=== PATIENT | male | born 1965 | race Caucasian/White ===

== ENCOUNTER 2017-07-26 07:30 | Inpatient (IN) | payer BC ==
[2017-07-25 09:24] VITALS: BMI 24.4
--- NOTE | 2017-07-25 11:52 | HP ---
DATE OF ADMISSION: DATE OF DICTATION: 07/11/2017 REASON FOR ADMISSION: Chronically incarcerated ventral hernia. BRIEF HISTORY: This is a 52-year-old gentleman with a known, chronically incarcerated ventral hernia. He has had several bouts of pain in the area of the hernia, and the most recent being several weeks ago. When he had that pain he also noticed pain below the hernia, and he had change in his bowel habits at that time. Patient states he normally goes every 2 days, and since that event, he has now been going to the bathroom (defecating) anywhere from 2-5 times per day. It is solid, and he has had a colonoscopy within the past year. He has had no bouts of nausea or vomiting. PAST MEDICAL HISTORY: Denies coronary disease, hypertension, or diabetes. PAST SURGICAL HISTORY: An appendectomy in September of 2007. ALLERGIES: None. MEDICATIONS: None. SOCIAL HISTORY: Patient is a lift truck mechanic. He does not smoke. He drinks socially. PHYSICAL EXAMINATION: Abdomen: Patient examined in the erect and supine position. He has a moderate diastasis from xiphoid to umbilicus. In the midline, he is noted to have a chronically incarcerated hernia. It is rather small. The actual defects are not truly appreciated due to its chronically incarcerated nature. The remainder of the abdominal examination is unremarkable. IMPRESSION/PLAN: Chronically incarcerated ventral hernia, diastasis recti. This is a 52-year-old gentleman with an abdominal discomfort approximately several weeks ago. Prior to that event, he had an attack approximately 3 months ago. With each attack, he describes sharp pain in the area of his hernia. He is now here for his hernia repair. Patient believes his bowel habits changed after his last attack several weeks ago and is related to the hernia. Based on my examination today, I do not see a correlation between the two, and this was conveyed to the patient. However, he still disagrees. At this point, we will plan to repair the hernia with mesh. Patient does an extreme amount of lifting, and, therefore, I think a primary repair will not hold up well. Also, the patient has a significant diastasis in the upper abdomen, and I suspect he has multiple defects in the upper abdomen, which will be evaluated as well. If these defects are [place] cheese identified at the time of surgery, he may require a component separation for a nice retrorectus repair. This will be determined at the time of surgery. I have also discussed the various approaches such as laparoscopic, robotic, and open with this gentleman, and we have opted to proceed with an open retro hernia repair, possible component separation. The indications, alternatives, and complications of the procedure are discussed at length. Questions answered. We will plan to obtain written consent the day of surgery. SIMRAN LEZAMA M.D. [id number]
[2017-07-26] MEDS ORDERED: TAMSULOSIN HCL 0.4 MG CAP.ER.24H (FP) ONE (07:45)
[2017-07-26] MEDS ORDERED: ceFAZolin SODIUM 1 GM VIAL ONE (07:46)
[2017-07-26] MEDS ORDERED: DEXAMETHASONE SOD PHOSPHATE/PF 10 MG/ML SDV ONE (07:55)
[2017-07-26] MEDS ORDERED: BUPIVACAINE HCL/PF 0.25% (2.5MG/ML) 10 ML VIAL ONE (07:58)
[2017-07-26] MEDS ORDERED: TAMSULOSIN HCL 0.4 MG CAP.ER.24H (FP) PO ONE (08:00)
[2017-07-26] MEDS ORDERED: fentaNYL CITRATE 250 MCG/5 ML VIAL ONE (09:05)
[2017-07-26] MEDS ORDERED: PROPOFOL 20 ML ONE (09:05)
[2017-07-26] MEDS ORDERED: DEXAMETHASONE SOD PHOSPHATE 4 MG/1 ML VIAL ONE (09:05)
[2017-07-26] MEDS ORDERED: ONDANSETRON 4 MG/2 ML VIAL ONE (09:05)
[2017-07-26] MEDS ORDERED: ROCURONIUM BROMIDE 50 MG/5 ML VIAL ONE (09:05)
[2017-07-26] MEDS ORDERED: LIDOCAINE HCL/PF 2% SDV 5ML VIAL ONE (09:05)
[2017-07-26] MEDS ORDERED: GLYCOPYRROLATE 0.2 MG/1 ML VIAL ONE (09:12)
[2017-07-26] MEDS ORDERED: NEOSTIGMINE METHYLSULFATE 0.5 MG/ML - 10 ML MDV ONE (09:12)
[2017-07-26] MEDS ORDERED: MIDAZOLAM HCL 2 MG/2 ML SINGLE DOSE VIAL ONE ×2 (09:22)
[2017-07-26] MEDS ORDERED: ceFAZolin SODIUM 1 GM VIAL IVPB ONE (10:05)
[2017-07-26] MEDS ORDERED: ePHEDrine SULFATE 50 MG/1 ML AMPULE ONE (10:28)
[2017-07-26] MEDS ORDERED: ONDANSETRON 4 MG/2 ML VIAL IVPUSH PRN ×2 (12:14→13:10)
--- NOTE | 2017-07-26 13:09 | OP ---
DATE OF OPERATION: 07/26/2017 PREOPERATIVE DIAGNOSIS: Chronically incarcerated ventral hernia (complex). POSTOPERATIVE DIAGNOSIS: Chronically incarcerated ventral hernia (complex). PROCEDURE: Open repair of complex chronically incarcerated ventral hernia with mesh, bilateral component separation. SURGEON: Trent Sanches MD NECKTIE OPERATOR POCKETS AND PIECES: Juan Newman MD ANESTHESIOLOGIST: Raheem Chavira MD (general). ESTIMATED BLOOD LOSS: Minimal. SPECIMEN: None. INDICATIONS FOR PROCEDURE: This is a 52-year-old gentleman with a known chronically incarcerated ventral hernia. It is causing him discomfort and he wishes to have this repaired. DESCRIPTION OF PROCEDURE: The patient was identified and appropriately positioned on the operating room table. After the placement of general anesthesia, the abdomen was prepped and draped in the usual sterile fashion with ChloraPrep. A midline incision was made deep into the subcutaneous tissue. The hernia dissected off the subcutaneous down to the level of fascia. At the fascial level, it was circumferentially isolated. The sac was opened. The rectus muscle on the right side was identified and the rectus sheath, posterior sheath, was subsequently divided and using blunt dissection, the posterior rectus space was subsequently developed out to the lateral junction of the oblique transversus. At this level, the perforating vessels were identified. The fascia just medial to the perforating vessels was subsequently scored. This allowed separation of the transversus more medially. This was done for the approximately 4 to 5 inches above and below the actual defect. Once the myofascial separation on the right side was completed, a similar technique was used on the left side. The left retrorectus space was entered in a similar fashion by dividing the posterior sheath. The space was subsequently developed out laterally and the perforating vessels were identified. Once this was done, the fascia just medial to the perforating vessels was subsequently scored and the myofascial separation ensued, allowing separation of the transversus, rectus and obliques. Again, this was taken approximately 4 to 5 inches above and below the actual defect. The defect was greater than 6 square centimeters and therefore would not allow a primary closure without tension. Also, the fascial edges beyond the 6 square centimeters were markedly frayed and the frayed tissue would not hold sutures well. Once this space was created, the posterior transversus layer was reapproximated with a running locking 3-0 Maxon suture. The space was irrigated. The operative field was noted to be hemostatic. A 15 x 15 Versatex along with a 10 x 12 Cezar Bio mesh was used for the operative repair. The two were sewn together with interrupted 3-0 Vicryl sutures. The mesh was placed into the retrorectus space with the Versatex against the muscle. The mesh itself was then anchored to the anterior abdominal wall with interrupted AbsorbaTacks. This mesh was irrigated. The operative field was noted to be hemostatic. The fascia overlying the mesh was reapproximated with interrupted no. 1 PDS suture. The subcutaneous space was irrigated and the skin closed with sherice, followed by Dermabond. At the conclusion of this case, sponge and needle counts were correct. ATTESTATION: Brief operative note handwritten on the preprinted form. [facility] queried prior to giving narcotics. Ayo PERES [id number] cc: Cristopher Ko MD MTDD
[2017-07-26] MEDS ORDERED: ACETAMINOPHEN 325 MG TABLET (FP) PO PRN (14:46)
[2017-07-26] MEDS ORDERED: oxyCODONE HCL 5 MG TABLET PO PRN (14:48)
[2017-07-26] MEDS ORDERED: morphine SULFATE 4 MG/ML VIAL IVPB PRN (14:50)
[2017-07-26] MEDS: D5-1/2NS+20 MEQ KCL - 20 MEQ/1,000 ML INFUS.BAG IV SCH (15:00)
[2017-07-26] MEDS ORDERED: LACTATED RINGERS SOLUTION 1,000 ML IV SCH (15:00)
[2017-07-26] MEDS: IBUPROFEN 800 MG/8 ML IJ IVPB SCH ×2 (16:40→23:22)
[2017-07-27] MEDS: D5-1/2NS+20 MEQ KCL - 20 MEQ/1,000 ML INFUS.BAG IV SCH (06:46)
[2017-07-27] MEDS: IBUPROFEN 800 MG/8 ML IJ IVPB SCH (06:46)
[2017-07-27] MEDS ORDERED: ENOXAPARIN NA (PORCINE) 40 MG/0.4 ML DISP.SYRIN SQ SCH (10:00)
[2017-07-27] MEDS ORDERED: PANTOPRAZOLE SODIUM 40 MG VIAL IVPUSH SCH (10:00)
[2017-07-27] MEDS ORDERED: ENOXAPARIN NA (PORCINE) 40 MG/0.4 ML DISP.SYRIN SQ ONE (12:15)
--- NOTE | 2017-07-27 12:47 | PN ---
Progress Note (short form) - Note Progress Note: Anesthesia postop note 52 y/o M s/p GA for ventral hernia repair POD#1, vss, aaox3, ambulating, no complaints. No anesthesia complications.
--- NOTE | 2017-07-27 12:52 | DS ---
DATE OF ADMISSION: 07/26/2017 DATE OF DISCHARGE: 07/27/2017 ADMITTING DIAGNOSIS: Complex abdominal wall hernia. DISCHARGE DIAGNOSIS: Complex abdominal wall hernia. BRIEF HISTORY: This is a 52-year-old male who was admitted to [facility] for repair of a complex ventral hernia. This was done utilizing mesh as well as component separation and myofascial release. Please reference Dr. Trent Sanches's operative note. The patient is being discharged home today, July 27. He is ambulating, voiding, and tolerating diet. He has no drains. He will go home with a new prescription of Percocet, which he will take as needed for pain. He is okay to shower, okay to drive. He is not lift anything more than 20 pounds. He will follow with Dr. Sanches in approximately 2 weeks' time for his postoperative check and to be evaluated for staple removal. At the time of his discharge, he is ambulating, not nauseous, and voiding. DO SANDRITA RILEY/[id number]
[2017-07-27 13:56] VITALS: BP 135/85; PULSE 72; TEMP 98
== END 2017-07-27 15:27 | disposition home or self-care (01) | DRG 353 ==
LOC: JASUSAT 07:30 → JSAMEDAYSX 13:10 → J6S 14:48
PROVIDERS: ADMIT Surgery; ATTEND Surgery
PROC: 0WUF0JZ Supplement Abdominal Wall with Synthetic Substitute, Open Approach (ICD-10-PCS; principal; 2017-07-26 09:30)
DX: K43.6 Other and unspecified ventral hernia with obstruction, without gangrene (principal); Q79.59 Other congenital malformations of abdominal wall
CPT/HCPCS: 94010; 94760